=== PATIENT | male | born 1930 | race Caucasian/White ===

== ENCOUNTER 2016-08-02 09:47 | Observation (INO) | payer MEDICARE, BC ==
[~2016-08-02] VITALS: Ht 170.2 cm; Wt 78.9 kg
[2016-08-02 10:35] LABS: BASO % 0.3 % (0.0-1.0); EOS % 0.6 % (0.0-3.0); LARGE UNSTAINED CELL # 0.2 K/mm3 (0.0-0.4); LARGE UNSTAINED CELL % 2.3 % (0.0-4.0); LYMPH % 13.6 % (24.0-44.0); MEAN CORPUSCULAR HEMOGLOBIN 32.6 pg (27.0-33.0); MEAN CORPUSCULAR HGB CONC 33.5 g/dl (32.0-36.5); MEAN CORPUSCULAR VOLUME 97.4 fl (80.0-96.0); MONO # 0.3 K/mm3 (0.0-0.8); NEUTROPHILS # 5.9 K/mm3 (1.8-7.7); NEUTROPHILS % 79.1 % (36.0-66.0); PLATELET COUNT, AUTOMATED 150 k/mm3 (150-450); RED CELL DISTRIBUTION WIDTH 12.3 % (11.5-14.5); WHITE BLOOD COUNT 7.4 K/mm3 (4.0-10.0)
[2016-08-02 10:52] LABS: CALCIUM LEVEL 8.9 MG/DL (8.8-10.2); CREATININE FOR GFR 2.09 MG/DL (0.70-1.30); GLOMERULAR FILTRATION RATE 32.2 (>35); POTASSIUM SERUM 4.2 MEQ/L (3.5-5.1)
--- NOTE | 2016-08-02 11:01 | REP ---
LUMBAR SPINE, FIVE VIEWS: There are no comparisons. There is mild scoliosis convex right. Vertebral body heights are normal L2-L5. There is grade 1 wedge shaped compression deformity of the L1 vertebral body, age indeterminate. There is no spondylolysis or spondylolisthesis. There are small osteophytes anteriorly at every lumbar level with large bridging osteophytes anteriorly at L3-4. This could represent degenerative disc disease or diffuse idiopathic skeletal hyperostosis. There is no spondylolysis or spondylolisthesis. The pedicles, facets and sacroiliac articulations are unremarkable. IMPRESSION: Grade 1 wedge compression deformity of L1, age indeterminate. Degenerative disc disease versus idiopathic skeletal hyperostosis. Otherwise, negative lumbar spine except for mild scoliosis. Unreviewed MTDD
--- NOTE | 2016-08-02 11:07 | REP ---
Chest x-ray: Two views. History: Cough. Findings: The lungs are symmetrically aerated and clear. EKG monitoring electrodes overlie the chest. Heart is at the upper range of normal in size unchanged. Pulmonary vasculature is not increased. No significant bony abnormality is seen. Impression: Borderline heart size. Otherwise no acute disease. Signed by Golden Bain MD 08/02/2016 02:42 P
--- NOTE | 2016-08-02 12:54 | REP ---
MRI lumbar spine without contrast: History: Bilateral lower leg weakness. Comparison radiographs are from August 02, 2016. Technique: Sagittal and axial T1 and T2-weighted scans are acquired in the usual fashion with and without fat saturation. Sequences include spin echo, turbo spin-echo, and STIR imaging sequences. MRI findings: Lumbar vertebral body heights are preserved. There is some straightening in a normal lumbar lordosis. There is mild wedging anteriorly at L1. This appears to be chronic. There is a Schmorl's node in the superior endplate at L1. Degenerative disc disease is seen diffusely. This is least pronounced at L5-S1 in the lumbar spine. It is most pronounced at L4-5. Axial and sagittal images at L4-5 demonstrate severe central canal stenosis due to developmentally short pedicles, diffuse moderate disc bulging, moderate to marked facet hypertrophy and ligamentum flavum hypertrophy. The mid sagittal dimension of the thecal sac is 5.6 mm. The CSF signal is effaced from the thecal sac on T2-weighted scans. There is a grade 1 degenerative 2 mm L4-5 spondylolisthesis. Neural foramina appear adequate. At L5-S1, there is mild facet hypertrophy bilaterally and minimal disc bulging. No other significant finding. At L3-4, there is diffuse bulging of the disc. A moderate bulging is seen in the right lateral disc margin. At L2-3 there is moderate facet and ligamentum flavum hypertrophy. A left foraminal disc protrusion is seen producing left foraminal narrowing and some effacement of the left ventral lateral margin of the thecal sac. Canal size is borderline a L2-3. At L1-2, there is no significant abnormality. Incidental note is made of a 3 cm cyst in the right kidney parapelvic region. Normal caliber aorta. Impression: 1. Moderate to severe central canal stenosis at L4-5. 2. Borderline canal size at L2-3. Left foraminal disc protrusion at L2-3. 3. Right lateral disc bulge at L3-4. 4. 3 cm right renal cyst. Signed by Golden Bain MD 08/02/2016 02:43 P
[2016-08-02] MEDS ORDERED: ONDANSETRON 4MG/2ML VIAL (J2405) IV PRN (13:45)
[2016-08-02] MEDS ORDERED: GLUCOSE 4 GM CHEW TABLET PO PRN (14:00)
[2016-08-02] MEDS ORDERED: GLUCAGON FOR INJ 1 MG VIAL (J1610) SC PRN (14:00)
[2016-08-02] MEDS ORDERED: DEXTROSE 50% 50 ML SYRINGE IV PRN (14:00)
--- NOTE | 2016-08-02 14:04 | HPEPDOC ---
General Date of Admission 08/02/2016 Chief Complaint The patient is a 86-year-old male admitted with a reason for visit of Weakness. Source: Patient, Family Exam Limitations: No limitations Timing/Duration: Unsure History of Present Illness 86-year-old male with past medical history of diabetes mellitus, hypertension, chronic kidney disease, dyslipidemia, CAD, BPH, and spinal stenosis presented to the ER with a chief complaint of a mechanical fall. According to the patient , the patient was getting out of his vehicle yesterday morning when he slipped and fell on ice. The patient denies any shortness of breath, chest pain, palpitations, lightheadedness, dizziness, or any trauma to the head. The patient states that he tried to get up but was unable to do so. He is unsure of how long he was down for after the fall, but estimates that is around 2 hours. The patient's son found him down on the driveway thereafter. At baseline, the patient is able to ambulate without any assistive devices. He lives at home by himself and is able to partake in all activities of daily living without any assistance. The patient does have 2 sons in the area who dropped by on occasion to help out with things around the home. At this time, the patient is brought to the ER as the patient sons state that they are concerned about their father' s ability to ambulate and function independently at home. Since the fall, the patient has been using a rolling walker for ambulation. The patient denies any acute complaints of lower extremity weakness, fecal/urinary incontinence, or any other symptoms consistent with saddle anesthesia. In the ER, an MRI of the lumbar spine was done and revealed moderate to severe central canal stenosis. The patient denies any acute lower back pain and states that he has had chronic lower back issues stemming from a fractured back in 1974. The patient was noted to have 5 out of 5 strength on his lower extremities on hip flexion, knee extension/flexion, ankle flexion/extension. Home Medications Scheduled (ada) 0.2 % Juanis 1 DROP OU DAILY (Reported) Finasteride (Finasteride) 5 Mg Tab 5 MG PO DAILY (Reported) Indapamide (Indapamide) 1.25 Mg Tab 1.25 MG PO DAILY (Reported) Insulin Detemir (Levemir Flextouch) 100 Unit/Ml Inj 35 UNIT SC DAILY (Reported ) Sertraline Hcl (Sertraline HCl) 50 Mg Tab 50 MG PO DAILY (Reported) Simvastatin - High Dose (Simvastatin) 40 Mg Tab 40 MG PO DAILY (Reported) Sitagliptin (Januvia) 50 Mg Tab 50 MG PO DAILY (Reported) Tamsulosin Hydrochloride (Flomax) 0.4 Mg Cap 0.4 MG PO DAILY (Reported) Scheduled PRN Acetaminophen/Hydrocodone (Hydrocodone/Acetaminophen 5-325 mg) 1 Tab Tab 1 TAB PO Q6H PRN PRN PAIN (Reported) Loteprednol Etabonate (Lotemax) 0.5 % Daniella 1 DROP OU BID PRN PRN PAIN (Reported) Meclizine HCl (Meclizine HCl) 12.5 Mg Tab 12.5 MG PO Q8H PRN PRN DIZZINESS ( Reported) Allergies Coded Allergies: Penicillins (Verified Allergy, Unknown, 11/09/12) Penicillins Cross Reactors (Verified Allergy, Unknown, 11/09/12) Past Medical History Medical History As noted in HPI Family History Significant Family History: No pertinent family hx Social History * Smoker: non-smoker Alcohol: denies Drugs: denies Social History 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 Lives at home by himself, is able to ambulate without an assistive device at baseline, performs activities of daily living independently. Review of Symptoms Other systems 10 point review of systems negative unless otherwise specified in HPI. Physical Examination ENT Exam: Positive: Atraumatic, Mucous membr. moist/pink Chest Exam: Positive: Clear to auscultation, Normal air movement, Negative: Rales Heart Exam: Positive: Rate Normal Abdomen Exam: Positive: Soft, Negative: Tenderness Extremity Exam: Positive: Normal pulses, Negative: Edema, Tenderness Neuro Exam: Positive: Strength at 5/5 X4 ext Vital Signs As listed in EMR Laboratory Data Labs 24H Laboratory Tests 2 08/02/16 10:27: Anion Gap 13, B-Type Natriuretic Peptide 159H, White Blood Count 7.4, Red Blood Count 3.95L, Hemoglobin 12.9L, Hematocrit 38.5L, Mean Corpuscular Volume 97.4H, Mean Corpuscular Hemoglobin 32.6, Mean Corpuscular Hemoglobin Concent 33.5, Red Cell Distribution Width 12.3, Platelet Count 150, Neutrophils (%) (Auto) 79.1H, Lymphocytes (%) (Auto) 13.6L, Monocytes (%) (Auto) 4.0, Eosinophils (%) (Auto) 0.6, Basophils (%) (Auto) 0.3, Neutrophils # (Auto) 5.9, Lymphocytes # (Auto) 1.0L, Monocytes # (Auto) 0.3, Eosinophils # (Auto) 0.0, Basophils # (Auto) 0.0, Blood Urea Nitrogen 29H, Creatinine 2.09H, Sodium Level 137, Potassium Level 4.2 , Chloride Level 99, Carbon Dioxide Level 25, Calcium Level 8.9, Total Creatine Kinase 319H, Creatine Kinase MB 1.0, Creatine Kinase MB Relative Index 0.31, Glomerular Filtration Rate 32.2L, Large Unclassified Cells # 0.2, Large Unclassified Cells % 2.3, Troponin I 0.03 CBC/BMP Laboratory Tests 08/02/16 10:27 Calcium Level 8.9, Total Creatine Kinase 319 H, Red Blood Count 3.95 L, Mean Corpuscular Volume 97.4 H, Mean Corpuscular Hemoglobin 32.6, Mean Corpuscular Hemoglobin Concent 33.5, Red Cell Distribution Width 12.3, Neutrophils (%) (Auto ) 79.1 H, Lymphocytes (%) (Auto) 13.6 L, Monocytes (%) (Auto) 4.0, Eosinophils ( %) (Auto) 0.6, Basophils (%) (Auto) 0.3, Neutrophils # (Auto) 5.9, Lymphocytes # (Auto) 1.0 L, Monocytes # (Auto) 0.3, Eosinophils # (Auto) 0.0, Basophils # ( Auto) 0.0 Assessment/Plan Problems: (1) Physical deconditioning Status: Chronic Response to Treatment: Stable Problem Text: MRI of the lumbar spine notable for moderate to severe central canal stenosis, with no acute changes noted Patient with 5/5 strength in all 4 extremities, no signs or symptoms of saddle anesthesia Patient able to ambulate without assistant press operator device at baseline, however now requiring a rolling walker Physical therapy and occupational therapy consulted-Will await further recommendations. (2) Chronic kidney disease Status: Chronic Response to Treatment: Stable Problem Text: Patient does have a history of chronic kidney disease, however we do not have any lab work here to identify his last serum creatinine Serum creatinine today is noted to be at 2.09 We will hold nephrotoxins at this time Outpatient records from Dr. Uriel Linares's office have been ordered. (3) Upper respiratory tract infection Status: Acute Response to Treatment: Improving Problem Text: We will continue the patient on azithromycin for 3 days Mucolytics Chest x-ray with no acute findings, patient saturating 92% on room air. (4) Diabetes mellitus Status: Chronic Response to Treatment: Stable Problem Text: Insulin sliding scale (5) Hypertension Status: Chronic Response to Treatment: Stable Problem Text: Continue home regimen (6) Dyslipidemia Status: Chronic Response to Treatment: Stable Problem Text: Statin (7) CAD (coronary artery disease) Status: Chronic Response to Treatment: Stable Problem Text: Status post stent placement in [address] [facility] No acute complaints of chest pain, shortness of breath at this time Plan / VTE VTE Prophylaxis Ordered?: Yes YOLY HORNE MD Aug 02, 2016 14:04
[2016-08-02] MEDS ORDERED: AZIT250T3 PO (14:05)
[2016-08-02] MEDS ORDERED: LEVE1INJ5 SC (14:14)
[2016-08-02] MEDS ORDERED: INDA125TA PO (14:14)
[2016-08-02] MEDS ORDERED: SIMV40TA2 PO (14:14)
[2016-08-02] MEDS ORDERED: FINA5TAB2 PO (14:14)
[2016-08-02] MEDS ORDERED: SERT-141 PO (14:14)
[2016-08-02] MEDS ORDERED: MECL12.575 PO (14:14)
[2016-08-02] MEDS ORDERED: PATA0.2S OU (14:14)
[2016-08-02] MEDS ORDERED: HYDR-3713 PO (14:14)
[2016-08-02] MEDS ORDERED: LOTE0.5S OU (14:14)
[2016-08-02] MEDS ORDERED: FLOM5CAP PO (14:14)
[2016-08-02] MEDS ORDERED: SITA50TAB PO (14:14)
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
[2016-08-02 17:15] VITALS: BP 143/63
[2016-08-02] MEDS: AZITHROMYCIN 250 MG TAB PO SCH (17:46)
[2016-08-02] MEDS: ACETAMINOPHEN TAB 650MG DOSE (2X325MG) PO PRN ×2 (17:46→22:29)
[2016-08-02] MEDS: HumaLOG INSULIN (NovoLOG) PER UNIT SC SCH ×2 (17:46→20:29)
[2016-08-02] MEDS ORDERED: NORCO, ANEXSIA 5/325MG TABLET (HYDROcodone/ACETAMINOPHEN) PO PRN (18:00)
[2016-08-02] MEDS ORDERED: MECLIZINE 12.5 MG TAB PO PRN (18:00)
[2016-08-02] MEDS: guaiFENesin ER 600 MG TAB PO SCH (21:15)
[2016-08-02] MEDS: HEPARIN SOD (PORCINE) 5000 UNITS/ML VIAL SC SCH (21:16)
[2016-08-02 22:00] VITALS: BP 113/61
[2016-08-03] MEDS: ACETAMINOPHEN TAB 650MG DOSE (2X325MG) PO PRN ×3 (03:52→21:43)
[2016-08-03] MEDS: HEPARIN SOD (PORCINE) 5000 UNITS/ML VIAL SC SCH ×3 (05:24→21:43)
[2016-08-03 06:00] VITALS: BP 113/60
[2016-08-03 06:31] LABS: MEAN CORPUSCULAR VOLUME 97.1 fl (80.0-96.0); RED CELL DISTRIBUTION WIDTH 13.1 % (11.5-14.5); WHITE BLOOD COUNT 9.3 K/mm3 (4.0-10.0)
[2016-08-03 06:45] LABS: CALCIUM LEVEL 8.7 MG/DL (8.8-10.2); CREATININE FOR GFR 2.02 MG/DL (0.70-1.30); GLOMERULAR FILTRATION RATE 33.5 (>35); POTASSIUM SERUM 3.6 MEQ/L (3.5-5.1)
--- NOTE | 2016-08-03 07:28 | ECGEPIP ---
Stationary ECG Study [facility] - ED Test Date: 2016-08-02 Pat Name: RICKI PENA Department: Room: - Gender: M Eligibility Services Representative: gautam : 1930 Requested By: Zachary Hogue Order Number: [id number] Reading MD: Zachary Pérez Measurements Intervals [place] Rate: 84 P: DC: 0 QRS: -37 QRSD: 78 T: 6 QT: 333 QTc: 395 Interpretive Statements SINUS RHYTHM WITH 1ST DEGREE AV BLOCK AND SINUS ARRHYTHMIA LOW QRS VOLTAGE IN PRECORDIAL LEADS INFERIOR MYOCARDIAL INFARCTION, PROBABLY OLD NO PRIORS Electronically Signed On 08-03-2016 7:28:35 EST by Zachary Pérez
[2016-08-03] MEDS: HumaLOG INSULIN (NovoLOG) PER UNIT SC SCH ×4 (08:18→21:00)
[2016-08-03] MEDS: SIMVASTATIN 40 MG TAB PO SCH (08:18)
[2016-08-03] MEDS: SERTRALINE HCL 50 MG TAB PO SCH (08:18)
[2016-08-03] MEDS: FINASTERIDE 5 MG TAB PO SCH (08:18)
[2016-08-03] MEDS: guaiFENesin ER 600 MG TAB PO SCH ×2 (08:18→21:43)
[2016-08-03] MEDS: TAMSULOSIN 0.4 MG CAP PO SCH (08:18)
[2016-08-03] MEDS: AZITHROMYCIN 250 MG TAB PO SCH (08:18)
[2016-08-03] MEDS: LEVEMIR (INSULIN DETEMIR) 1 UNITS/0.01ML SC SCH (08:19)
--- NOTE | 2016-08-03 13:48 | IPNPDOC ---
Date of Service/Time 08/03/16 Progress Note SUBJECTIVE: The patient is unsure if he feels any better than he did yesterday. He tells me that he has been having a cough and producing a lot of phlegm the last several days he can't tell me for how long he tells me that he has not had any fevers that he knows about until last night. He denies chest pain shortness of breath nausea vomiting diarrhea OBJECTIVE: PHYSICAL EXAMINATION: VITAL SIGNS: MAXIMUM TEMPERATURE 101.1 Please see below. GENERAL: [Elderly man lying flat in bed with a relatively flat affect] HEENT: Pupils equal round reactive to light he has moist mucous membranes CARDIOVASCULAR: S1-S2 regular. RESPIRATORY: With upper airway sounds he has a wet cough he is moving air well. ABDOMINAL: Bowel sounds present obese EXTREMITIES: No clubbing cyanosis or edema LABORATORY DATA: Stable chronic kidney disease Please see below. MICROBIOLOGY: Please see below. IMAGING: [The patient had an MRI of the lumbar spine which revealed a known moderate to severe central canal stenosis at L4-L5 The patient also had a chest x-ray which revealed borderline heart size otherwise no acute disease DVT prophylaxis ordered?: [Heparin every 12] ASSESSMENT AND PLAN: This is a 86-year-old man with [fever cough and weakness]. PROBLEMS: 1. [Respiratory tract infection: The patient did have a fever last evening he does have a cough and is pierced be wet at this time I'll broaden antibiotics with azithromycin by mouth to levofloxacin IV every 48 hours renally dosed I suspect that the respiratory tract infection may be acutely playing a role in his poor health however clearly has chronic issues. The patient is also on Mucinex. Since the patient didn't spike any fever I'll check UA urine culture as well as blood cultures. This may also be a viral infection as such I will check respiratory PCR panel] 2. Physical deconditioning: The patient reportedly had a slip on ice 2 days ago and has felt so weak that he could not get himself up from the ground and he lay there for 2 hours before his son came this may have been a potential etiology for his present respiratory tract infection. The patient will benefit greatly from PT he has good muscle strength in all extremities. The patient tells me has not been taking good care of himself at home he does not eat good meals he needs help. He tells me that he feels down and depressed since his 2 years ago and they've been together for greater than 60 years. 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 VS, I&O, 24H, Fishbone VS, I&O, 24H, Fishbone Vital Signs Date Time Temp Pulse Resp B/P Pulse Ox O2 Delivery O2 Flow Rate FiO2 08/03/16 06:00 99.9 89 18 113/60 90 Room Air I&O- Last 24 Hours up to 6 AM 08/03/16 06:00 Intake Total 0 ml Output Total 100 ml Balance -100 ml Laboratory Tests 2 08/02/16 17:27: Bedside Glucose (Misc Panel) 294H 08/02/16 20:24: Bedside Glucose (Misc Panel) 232H 08/03/16 05:58: Anion Gap 14, Blood Urea Nitrogen 33H, Creatinine 2.02H, Sodium Level 137, Potassium Level 3.6, Chloride Level 101, Carbon Dioxide Level 22, Calcium Level 8.7L, Glomerular Filtration Rate 33.5L 08/03/16 12:08: Total Creatine Kinase 205 Laboratory Tests 08/03/16 05:58 Calcium Level 8.7 L, Red Blood Count 3.86 L, Mean Corpuscular Volume 97.1 H, Mean Corpuscular Hemoglobin 33.0, Mean Corpuscular Hemoglobin Concent 34.0, Red Cell Distribution Width 13.1 Microbiology 08/03/16 Blood Culture, Received Pending 08/03/16 Blood Culture, Received Pending NICO TERRELL MD Aug 03, 2016 13:48
[2016-08-03 14:00] VITALS: BP 124/66
[2016-08-03] MEDS ORDERED: LevoFLOXacin 500 MG in APPROPRIATE DILUENT 1 EA IV SCH (14:00)
[2016-08-03 22:00] VITALS: BP 116/72
[2016-08-04] MEDS: HEPARIN SOD (PORCINE) 5000 UNITS/ML VIAL SC SCH ×3 (05:57→21:54)
[2016-08-04 06:00] VITALS: BP 113/57
[2016-08-04 06:41] LABS: MEAN CORPUSCULAR HGB CONC 34.2 g/dl (32.0-36.5); MEAN CORPUSCULAR VOLUME 96.3 fl (80.0-96.0); RED CELL DISTRIBUTION WIDTH 12.3 % (11.5-14.5); WHITE BLOOD COUNT 6.7 K/mm3 (4.0-10.0)
[2016-08-04 06:48] LABS: CALCIUM LEVEL 8.4 MG/DL (8.8-10.2); CREATININE FOR GFR 1.79 MG/DL (0.70-1.30); GLOMERULAR FILTRATION RATE 38.5 (>35); POTASSIUM SERUM 3.5 MEQ/L (3.5-5.1)
[2016-08-04] MEDS: HumaLOG INSULIN (NovoLOG) PER UNIT SC SCH ×4 (08:57→20:46)
[2016-08-04] MEDS: guaiFENesin ER 600 MG TAB PO SCH ×2 (08:57→21:54)
[2016-08-04] MEDS: FINASTERIDE 5 MG TAB PO SCH (08:57)
[2016-08-04] MEDS: SIMVASTATIN 40 MG TAB PO SCH (08:58)
[2016-08-04] MEDS: SERTRALINE HCL 50 MG TAB PO SCH (08:58)
[2016-08-04] MEDS: LEVEMIR (INSULIN DETEMIR) 1 UNITS/0.01ML SC SCH (08:58)
[2016-08-04] MEDS: AZITHROMYCIN 250 MG TAB PO SCH (08:58)
[2016-08-04] MEDS: TAMSULOSIN 0.4 MG CAP PO SCH (08:58)
--- NOTE | 2016-08-04 11:14 | IPNPDOC ---
Date of Service/Time 08/04/16 Progress Note SUBJECTIVE: The patient tells me that he started feel better he still says he is getting his strength back and that he is not coughing up much phlegm OBJECTIVE: PHYSICAL EXAMINATION: VITAL SIGNS: MAXIMUM TEMPERATURE 100.3 otherwise Please see below. GENERAL: Elderly man lying flat in bed he appears more energetic today HEENT: Pupils equal round reactive to light he has moist mucous membranes CARDIOVASCULAR: S1-S2 regular. RESPIRATORY: Good air movement he does sound clear today ABDOMINAL: Bowel sounds present obese EXTREMITIES: No clubbing cyanosis or edema LABORATORY DATA: Stable chronic kidney disease Please see below. MICROBIOLOGY: Respiratory panel did return positive for parainfluenza virus 2 otherwise blood cultures negative urine culture pending Please see below. IMAGING: [The patient had an MRI of the lumbar spine which revealed a known moderate to severe central canal stenosis at L4-L5 The patient also had a chest x-ray which revealed borderline heart size otherwise no acute disease DVT prophylaxis ordered?: Heparin every 12 ASSESSMENT AND PLAN: This is a 86-year-old man with fever cough and weakness. PROBLEMS: 1. Parainfluenza 2: The patient did present with a fever and a cough and weakness. Although he is improving with supportive measures is unclear to me if he had the infection prior to his mechanical fall on the ice which is why he was too weak to arise versus him lying in the cold for 2 hours and becoming more susceptible to viral infection will continue supportive care. The patient is also on Mucinex. We will discontinue antibacterials 2. Physical deconditioning: The patient reportedly had a slip on ice 2 days ago and has felt so weak that he could not get himself up from the ground and he lay there for 2 hours before his son came this may have been a potential etiology for his present respiratory tract infection or may have been the reason why he was feeling weaker than usual and unable to arise either way we' ll have the patient work with physical therapy he does appear to be regaining some strength I suspect he would benefit from some home health services. 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 VS, I&O, 24H, Fishbone VS, I&O, 24H, Fishbone Vital Signs Date Time Temp Pulse Resp B/P Pulse Ox O2 Delivery O2 Flow Rate FiO2 08/04/16 06:00 99.3 75 19 113/57 91 Room Air I&O- Last 24 Hours up to 6 AM 08/04/16 06:00 Intake Total 1040 ml Output Total 0 ml Balance 1040 ml Laboratory Tests 2 08/03/16 12:08: Total Creatine Kinase 205 08/04/16 05:57: Anion Gap 12, Blood Urea Nitrogen 37H, Creatinine 1.79H, Sodium Level 137, Potassium Level 3.5, Chloride Level 100, Carbon Dioxide Level 25, Calcium Level 8.4L, Glomerular Filtration Rate 38.5 08/04/16 09:00: Urine Amorphous Sediment SMALLH, Urine Appearance HAZY, Urine Color YELLOW, Urine pH 5.0, Urine Specific [place] 1.019, Urine Protein 1+H, Urine Glucose (UA ) NEGATIVE, Urine Ketones TRACEH, Urine Urobilinogen 0.2, Urine Bilirubin NEGATIVE, Urine Leukocyte Esterase NEGATIVE, Urine Bacteria (Auto) NEGATIVE, Urine Blood 1+H, Urine Calcium Carbonate Cryst(Auto) , Urine Calcium Oxalate Cryst (Auto) , Urine Calcium Phosphate Gabi (Auto) , Urine Cellular Casts , Urine Cystine Crystals , Urine Granular Casts (Auto) , Urine Hyaline Casts (Auto ) 0, Urine Leucine Crystals , Urine Mucus (Auto) SMALL, Urine Nitrite NEGATIVE, Urine Oval Fat Bodies (Auto) , Urine RBC (Auto) 1, Urine Renal Epithelial Cells , Urine Sperm (Auto) , Urine Squamous Epithelial Cells 0, Urine Transitional Epithelial Cells , Urine Trichomonas (Auto) , Urine Triple Phosphate Cryst (Auto ) , Urine Tyrosine Crystals , Urine Uric Acid Crystals (Auto) , Urine WBC (Auto ) 0, Urine Waxy Casts (Auto) , Urine Yeast-Like Cells (Auto) Laboratory Tests 08/04/16 05:57 Calcium Level 8.4 L, Red Blood Count 3.84 L, Mean Corpuscular Volume 96.3 H, Mean Corpuscular Hemoglobin 33.0, Mean Corpuscular Hemoglobin Concent 34.2, Red Cell Distribution Width 12.3 Microbiology 08/03/16 Blood Culture - Preliminary, Resulted No growth after 24 hours . All specim... 08/03/16 Blood Culture - Preliminary, Resulted No growth after 24 hours . All specim... 08/03/16 Respiratory Virus Panel (PCR) (HIEN) - Final, Complete Parainfluenza 2 (Piv2) 08/04/16 Urine Culture, Received Pending NICO TERRELL MD Aug 04, 2016 11:14
[2016-08-04 14:00] VITALS: BP 116/67
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
[2016-08-04 22:00] VITALS: BP 114/60
[2016-08-05 05:58] LABS: MEAN CORPUSCULAR HEMOGLOBIN 32.9 pg (27.0-33.0); MEAN CORPUSCULAR HGB CONC 34.5 g/dl (32.0-36.5); MEAN CORPUSCULAR VOLUME 95.5 fl (80.0-96.0); RED CELL DISTRIBUTION WIDTH 12.2 % (11.5-14.5); WHITE BLOOD COUNT 5.1 K/mm3 (4.0-10.0)
[2016-08-05 06:00] VITALS: BP 113/68
[2016-08-05 06:18] LABS: CALCIUM LEVEL 8.8 MG/DL (8.8-10.2); CREATININE FOR GFR 1.69 MG/DL (0.70-1.30); GLOMERULAR FILTRATION RATE 41.2 (>35); POTASSIUM SERUM 3.5 MEQ/L (3.5-5.1)
[2016-08-05] MEDS: HEPARIN SOD (PORCINE) 5000 UNITS/ML VIAL SC SCH ×3 (06:32→21:29)
[2016-08-05] MEDS: FINASTERIDE 5 MG TAB PO SCH (09:43)
[2016-08-05] MEDS: TAMSULOSIN 0.4 MG CAP PO SCH (09:43)
[2016-08-05] MEDS: SERTRALINE HCL 50 MG TAB PO SCH (09:43)
[2016-08-05] MEDS: LEVEMIR (INSULIN DETEMIR) 1 UNITS/0.01ML SC SCH (09:43)
[2016-08-05] MEDS: guaiFENesin ER 600 MG TAB PO SCH ×2 (09:43→21:29)
[2016-08-05] MEDS: SIMVASTATIN 40 MG TAB PO SCH (09:43)
[2016-08-05] MEDS: HumaLOG INSULIN (NovoLOG) PER UNIT SC SCH ×4 (09:44→21:00)
[2016-08-05 14:00] VITALS: BP 110/67
--- NOTE | 2016-08-05 15:04 | IPNPDOC ---
Date of Service/Time 08/05/16 Progress Note SUBJECTIVE: The patient tells me that he continues to feel better and he feels better than yesterday OBJECTIVE: PHYSICAL EXAMINATION: VITAL SIGNS: Please see below. GENERAL: Elderly man lying flat in bed he appears more energetic today HEENT: Pupils equal round reactive to light he has moist mucous membranes CARDIOVASCULAR: S1-S2 regular. RESPIRATORY: Good air movement he does sound clear today ABDOMINAL: Bowel sounds present obese EXTREMITIES: No clubbing cyanosis or edema LABORATORY DATA: Stable chronic kidney disease Please see below. MICROBIOLOGY: Respiratory panel did return positive for parainfluenza virus 2 otherwise blood cultures negative urine culture pending Please see below. IMAGING: [The patient had an MRI of the lumbar spine which revealed a known moderate to severe central canal stenosis at L4-L5 The patient also had a chest x-ray which revealed borderline heart size otherwise no acute disease DVT prophylaxis ordered?: Heparin every 12 ASSESSMENT AND PLAN: This is a 86-year-old man with fever cough and weakness. PROBLEMS: 1. Parainfluenza 2: The patient did present with a fever and a cough and weakness. Although he is improving with supportive measures is unclear to me if he had the infection prior to his mechanical fall on the ice which is why he was too weak to arise versus him lying in the cold for 2 hours and becoming more susceptible to viral infection regardless will continue supportive care. The patient is also on Mucinex. We have discontinued antibacterials 2. Physical deconditioning: The patient reportedly had a slip on ice 2 days ago and has felt so weak that he could not get himself up from the ground and he lay there for 2 hours before his son came this may have been a potential etiology for his present respiratory tract infection or may have been the reason why he was feeling weaker than usual and unable to arise either way we' ll have the patient work with physical therapy and they have evaluated him and feel his is unsafe for discharge at this time. he does appear to be regaining some strength I suspect he would benefit from some home health services and have placed a PFS note. The patient himself feels as though he can't take good care of himself at home. 3. 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 mg daily 4.coronary artery disease: Status post intervention in the past patient of statins presently is not on a beta james and aspirin will defer to his outpatient providers 5.BPH: Patient is on Flomax and finasteride without any current symptoms 6.type 2 diabetes: The patient on sliding scale insulin statistics are controlled 7.chronic kidney disease: Stable continue to monitor his renal function DISPOSITION: Continue supportive care for parainfluenza continue with physical therapy I suspect the patient may be a little be discharged in next 24-48 hours if safe disposition can be arranged and cleared by PT. PFS cons placed. VS, I&O, 24H, Fishbone VS, I&O, 24H, Fishbone Vital Signs Date Time Temp Pulse Resp B/P Pulse Ox O2 Delivery O2 Flow Rate FiO2 08/05/16 06:00 97.4 54 14 113/68 96 Room Air I&O- Last 24 Hours up to 6 AM 08/05/16 06:00 Intake Total 1560 ml Output Total 350 ml Balance 1210 ml Laboratory Tests 2 08/05/16 05:30: Anion Gap 12, Blood Urea Nitrogen 39H, Creatinine 1.69H, Sodium Level 138, Potassium Level 3.5, Chloride Level 102, Carbon Dioxide Level 24, Calcium Level 8.8, Glomerular Filtration Rate 41.2 Laboratory Tests 08/05/16 05:30 Calcium Level 8.8, Red Blood Count 3.68 L, Mean Corpuscular Volume 95.5, Mean Corpuscular Hemoglobin 32.9, Mean Corpuscular Hemoglobin Concent 34.5, Red Cell Distribution Width 12.2 Microbiology 08/03/16 Blood Culture - Preliminary, Resulted No Growth after 48 hours. All Specime... 08/03/16 Blood Culture - Preliminary, Resulted No Growth after 48 hours. All Specime... 08/03/16 Respiratory Virus Panel (PCR) (HIEN) - Final, Complete Parainfluenza 2 (Piv2) 08/04/16 Urine Culture - Final, Complete NICO TERRELL MD Aug 05, 2016 15:04
[2016-08-05 22:00] VITALS: BP 134/91
[2016-08-06] MEDS: HEPARIN SOD (PORCINE) 5000 UNITS/ML VIAL SC SCH (05:09)
[2016-08-06 06:00] VITALS: BP 117/72
[2016-08-06 06:03] LABS: MEAN CORPUSCULAR HEMOGLOBIN 32.7 pg (27.0-33.0); MEAN CORPUSCULAR HGB CONC 34.1 g/dl (32.0-36.5); MEAN CORPUSCULAR VOLUME 95.9 fl (80.0-96.0); RED CELL DISTRIBUTION WIDTH 12.1 % (11.5-14.5); WHITE BLOOD COUNT 5.5 K/mm3 (4.0-10.0)
[2016-08-06 06:18] LABS: CALCIUM LEVEL 8.9 MG/DL (8.8-10.2); CREATININE FOR GFR 1.67 MG/DL (0.70-1.30); GLOMERULAR FILTRATION RATE 41.7 (>35); POTASSIUM SERUM 3.8 MEQ/L (3.5-5.1)
[2016-08-06] MEDS: HumaLOG INSULIN (NovoLOG) PER UNIT SC SCH (09:03)
[2016-08-06 09:15] VITALS: BP 131/77
[2016-08-06] MEDS: TAMSULOSIN 0.4 MG CAP PO SCH (10:14)
[2016-08-06] MEDS: FINASTERIDE 5 MG TAB PO SCH (10:14)
[2016-08-06] MEDS: SIMVASTATIN 40 MG TAB PO SCH (10:14)
[2016-08-06] MEDS: SERTRALINE HCL 50 MG TAB PO SCH (10:15)
[2016-08-06] MEDS: guaiFENesin ER 600 MG TAB PO SCH (10:15)
[2016-08-06] MEDS: LEVEMIR (INSULIN DETEMIR) 1 UNITS/0.01ML SC SCH (10:15)
--- NOTE | 2016-08-06 14:23 | IPN ---
DATE: 08/06/2016 Mr. Oshea is feeling well today. He has no complaints of pain. He does not describe any chest pain or shortness of breath. He does not feel particularly short of breath. Temperature 97.4, pulse 67, respiratory rate 18, blood pressure 131/77, 92% on room air. Awake, alert. Breathing is symmetrical. I:E ratio is 1:3. No wheezes, rales or rhonchi. Heart is in a regular rate and rhythm. Abdomen soft, doughy, nontender. White blood cell count 5.5, hemoglobin 12.4 and platelets of 187. BUN 38, creatinine 1.67. ASSESSMENT: 86-year-old man with fever, cough and weakness, found to have Parainfluenza 2. PLAN: 1. Patient has Parainfluenza 2, is not antibiotics, and has improved markedly. 2. Patient had a fall and a prolonged time on the ground. He had minimal rhabdomyolysis, but had physical deconditioning. He has much improved to baseline and passed physical therapy. 3. Patient has history of coronary artery disease. 4. Patient has BPH. 5. Patient has type 2 diabetes. 6. Patient has chronic kidney disease. 7. Patient is discharged today and was deemed not to need home nursing care.
== END 2016-08-06 12:20 | disposition home or self-care (01) ==
LOC: M ED 09:47 → M ED INP 13:43 → INTOOBSV 13:43 → M MSPAV 17:12
PROVIDERS: ADMIT Internal Medicine; ATTEND Internal Medicine
DX: R53.81 Other malaise (principal); M62.82 Rhabdomyolysis; N18.3 Chronic kidney disease, stage 3 (moderate); J12.2 Parainfluenza virus pneumonia; E11.9 Type 2 diabetes mellitus without complications; Z79.4 Long term (current) use of insulin; Z88.0 Allergy status to penicillin; I10 Essential (primary) hypertension; I25.10 Atherosclerotic heart disease of native coronary artery without angina pectoris; M48.06 Spinal stenosis, lumbar region; Z79.82 Long term (current) use of aspirin; Z79.51 Long term (current) use of inhaled steroids; Z98.61 Coronary angioplasty status; Z79.899 Other long term (current) drug therapy; E78.4 Other hyperlipidemia
CPT/HCPCS: 36415; 71020; 72110; 72148; 80048; 81001; 82550; 82553; 83880; 84484; 85025; 85027; 87040; 87086; 87486; 87581; 87633; 87798; 93005; 93041; 96372; 96374; 97001; 97166; 97530; 99285; G0378; G8978; G8979; G8980; J1956

== ENCOUNTER → 2018-01-06 | Outpatient (REF) | payer MEDICARE, BC ==
[2018-01-06 14:14] LABS: TOTAL PROTEIN,RANDOM URINE 59.1 MG/DL (0.0-12.0)
== END ==
LOC: M LAB REF 13:13
DX: R80.9 Proteinuria, unspecified (principal)
CPT/HCPCS: 82570

== ENCOUNTER → 2018-01-21 | Outpatient (CLI) | payer MEDICARE, BC | LOC: M RAD 09:11 | DX: N18.3 Chronic kidney disease, stage 3 (moderate) (principal); E11.22 Type 2 diabetes mellitus with diabetic chronic kidney disease; N28.1 Cyst of kidney, acquired | CPT/HCPCS: 76775 ==

== ENCOUNTER 2018-02-26 06:23 | Day surgery (SDC) | payer MEDICARE, BC ==
[~2018-02-26 06:23] MED LIST: SLF 3 ML SYR IV
[2018-02-26 06:50] LABS: BEDSIDE GLUCOSE 268 MG/DL (83-110)
[2018-02-26] MEDS: SLF 3 ML SYR IV (06:55)
[2018-02-26] MEDS: PROPARACAINE 0.5% OPHTH SOL 15ML OS (07:03)
[2018-02-26] MEDS: OFLOXACIN 0.3 % (OCUFLOX) OPTH SOL 5ML OS (07:03)
[2018-02-26] MEDS: PHENYLEPHRINE 2.5% OPHTH SOL 2ML OS (07:04)
[2018-02-26] MEDS: TROPICAMIDE 1% OPHTH SOLN 2ML OS (07:04)
[2018-02-26] MEDS ORDERED: PHENYLEPHRINE HCL 10 % OPHTH. SOL 5ML As Ordered (07:25)
[2018-02-26] MEDS ORDERED: fentaNYL 100 MCG/2 ML INJECTION (J3010) As Ordered (07:31)
[2018-02-26] MEDS ORDERED: MIDAZOLAM INJ 2 MG/2 ML VIAL (J2250) As Ordered (07:31)
[2018-02-26] MEDS: POVIDONE-IODINE 5% OPHTH PREP SOL 30ML As Ordered (08:30)
[2018-02-26] MEDS: DUOVISC (0.50ML VISCOAT/0.55ML PROVISC) OPHTH KIT As Ordered (08:30)
[2018-02-26] MEDS: LIDOCAINE 0.75%/EPINEPHRINE 0.025% IN BSS 1ML SYR INTRACAMERAL (OR ONLY) As Ordered (08:30)
[2018-02-26] MEDS: BALANCED SALT IRRIGATION SOLUTION 500ML BAG (FOR OR EYE MACHINE) As Ordered (08:30)
== END 2018-02-26 09:25 | disposition home or self-care (01) ==
LOC: M SDC 06:23
DX: H25.12 Age-related nuclear cataract, left eye (principal); I25.10 Atherosclerotic heart disease of native coronary artery without angina pectoris; I10 Essential (primary) hypertension; E78.4 Other hyperlipidemia; R06.09 Other forms of dyspnea; E11.9 Type 2 diabetes mellitus without complications; Z79.82 Long term (current) use of aspirin; Z79.899 Other long term (current) drug therapy
CPT/HCPCS: 66984

== ENCOUNTER 2018-03-05 07:42 | Day surgery (SDC) | payer MEDICARE, BC ==
[2018-03-05 08:15] LABS: BEDSIDE GLUCOSE 354 MG/DL (83-110)
[2018-03-05] MEDS ORDERED: HumaLOG INSULIN (NovoLOG) PER UNIT As Ordered (08:15)
[2018-03-05] MEDS: HumaLOG INSULIN (NovoLOG) PER UNIT SC (08:16)
[2018-03-05] MEDS: PROPARACAINE 0.5% OPHTH SOL 15ML OD (08:21)
[2018-03-05] MEDS: PHENYLEPHRINE 2.5% OPHTH SOL 2ML OD (08:21)
[2018-03-05] MEDS: OFLOXACIN 0.3 % (OCUFLOX) OPTH SOL 5ML OD (08:21)
[2018-03-05] MEDS: TROPICAMIDE 1% OPHTH SOLN 2ML OD (08:21)
[2018-03-05 08:54] LABS: BEDSIDE GLUCOSE 331 MG/DL (83-110)
[2018-03-05 09:27] LABS: BEDSIDE GLUCOSE 297 MG/DL (83-110)
[2018-03-05] MEDS: POVIDONE-IODINE 5% OPHTH PREP SOL 30ML As Ordered (09:35)
[2018-03-05] MEDS: LIDOCAINE 0.75%/EPINEPHRINE 0.025% IN BSS 1ML SYR INTRACAMERAL (OR ONLY) As Ordered (09:40)
[2018-03-05] MEDS: BALANCED SALT IRRIGATION SOLUTION 500ML BAG (FOR OR EYE MACHINE) As Ordered (09:40)
[2018-03-05] MEDS: DUOVISC (0.50ML VISCOAT/0.55ML PROVISC) OPHTH KIT As Ordered (09:40)
[2018-03-05] MEDS ORDERED: fentaNYL 100 MCG/2 ML INJECTION (J3010) As Ordered (09:45)
[2018-03-05] MEDS ORDERED: MIDAZOLAM INJ 2 MG/2 ML VIAL (J2250) As Ordered (09:45)
== END 2018-03-05 10:34 | disposition home or self-care (01) ==
LOC: M SDC 07:42
DX: H25.11 Age-related nuclear cataract, right eye (principal); H57.03 Miosis; I10 Essential (primary) hypertension; E78.5 Hyperlipidemia, unspecified; E11.9 Type 2 diabetes mellitus without complications; I25.10 Atherosclerotic heart disease of native coronary artery without angina pectoris; Z88.0 Allergy status to penicillin; Z79.899 Other long term (current) drug therapy; Z95.5 Presence of coronary angioplasty implant and graft
CPT/HCPCS: 66982